=== PATIENT | female | born 1995 | race Caucasian/White ===

== ENCOUNTER 2017-04-30 18:05 | Inpatient (IN) | payer SELFPAY ==
[~2017-04-30] VITALS: Ht 162.6 cm; Wt 68.0 kg
[2017-04-30 18:40] VITALS: BP 114/61
[2017-04-30] MEDS ORDERED: PRENATAL 19 TA1 EACH PO (19:20)
[2017-04-30] MEDS ORDERED: FERROUS SULFAT325 MG PO (19:20)
[2017-04-30] MEDS ORDERED: TERBUTALINE 1 MG/ML VIAL SUBQ SCH (20:10)
[2017-04-30] MEDS ORDERED: TERBUTALINE 1 MG/ML VIAL SUBQ ONE (20:22)
[2017-04-30] MEDS: LACTATED RINGERS 1,000 ML IV SCH (20:52)
[2017-05-01] MEDS: LACTATED RINGERS 1,000 ML IV SCH ×2 (01:24→18:08)
[2017-05-01] MEDS ORDERED: NALBUPHINE 10 MG/ML AMP IVP PRN ×2 (08:35→13:50)
[2017-05-01] MEDS ORDERED: NALBUPHINE HYDROCHLORIDE 10 MG/ML VIAL ONE ×2 (08:40→22:42)
--- NOTE | 2017-05-01 08:58 | NUR ---
PATIENT HAS BEEN SCREENED AND CATEGORIZED LOW NUTRITION RISK. PATIENT WILL BE SEEN WITHIN 7 DAYS OF ADMISSION. 05/07/[address]
[2017-05-01] MEDS ORDERED: OXYTOCIN 20 UNITS/LR PREMIX 1,000 ML IV SCH (13:48)
[2017-05-01] MEDS ORDERED: PROMETHAZINE 25 MG/ML VIAL IVP PRN (13:50)
[2017-05-01] MEDS ORDERED: OXYTOCIN 10 UNITS/ML VIAL IM ONE (13:50)
[2017-05-01] MEDS ORDERED: AMPICILLIN 2,000 MG in NACL 0.9% 100 ML IV SCH (14:17)
[2017-05-01] MEDS ORDERED: AMPICILLIN 2,000 MG VIAL ONE (14:42)
[2017-05-01] MEDS ORDERED: ROPIVACAINE 0.2%/NS PREMIX 250 ML EPI ONE (15:57)
[2017-05-01] MEDS ORDERED: AMPICILLIN 1,000 MG VIAL ONE ×2 (18:27→22:53)
[2017-05-01] MEDS: AMPICILLIN 1,000 MG in NACL 0.9% 50 ML IV SCH ×2 (18:40→22:50)
[2017-05-01] MEDS ORDERED: PROMETHAZINE 25 MG/ML VIAL ONE (22:43)
[2017-05-02] MEDS ORDERED: ROPIVACAINE 0.2%/NS PREMIX 250 ML EPI ONE (01:21)
[2017-05-02] MEDS: AMPICILLIN 1,000 MG in NACL 0.9% 50 ML IV SCH ×2 (02:53→06:52)
[2017-05-02] MEDS ORDERED: AMPICILLIN 1,000 MG VIAL ONE ×2 (02:56→06:25)
[2017-05-02] MEDS: LACTATED RINGERS 1,000 ML IV SCH (05:56)
[2017-05-02] MEDS ORDERED: OXYTOCIN 20 UNITS/LR PREMIX 1,000 ML IV ONE (06:25)
[2017-05-02] MEDS ORDERED: OXYTOCIN 10 UNITS/ML VIAL ONE (08:54)
[2017-05-02] MEDS ORDERED: METHYLERGONOVINE 0.2 MG/ML AMP IM PRN (12:45)
[2017-05-02] MEDS ORDERED: oxyCODONE/APAP 5/325 MG 1 TAB TAB PO PRN (12:45)
[2017-05-02] MEDS ORDERED: MEASLES, MUMPS, AND RUBELLA 1 VIAL SQVAC PRN (12:45)
[2017-05-02] MEDS ORDERED: WITCH HAZEL 40 PAD PACKAGE TP PRN (12:45)
[2017-05-02] MEDS ORDERED: BENZOCAINE/MENTHOL 20%-0.5% 60 GM CAN TP PRN (12:45)
[2017-05-02] MEDS ORDERED: TEMAZEPAM 15 MG CAP PO PRN (12:45)
[2017-05-02] MEDS ORDERED: IBUPROFEN 800 MG TAB PO PRN (12:45)
[2017-05-02] MEDS: HYDROcodone/APAP 5/325 MG 1 TAB TAB PO PRN ×2 (12:53→21:39)
[2017-05-02] MEDS ORDERED: DOCUSATE SOD/SENNA 50/8.6 MG 1 TAB PO SCH (21:00)
[2017-05-03] MEDS: HYDROcodone/APAP 5/325 MG 1 TAB TAB PO PRN ×2 (10:30→19:45)
[2017-05-03] MEDS ORDERED: MOTRIN400 MG PO (18:16)
== END 2017-05-03 20:30 | disposition home or self-care (01) | DRG 775 ==
LOC: OBSVTOIN 18:05 → MLD 18:05 → MFCC 05-02 12:45
PROVIDERS: ADMIT Obstetrics & Gynecology; ATTEND Obstetrics & Gynecology
PROC: 00HU33Z Insertion of Infusion Device into Spinal Canal, Percutaneous Approach (ICD-10-PCS; 2017-05-01)
PROC: 3E0R3CZ (ICD-10-PCS; 2017-05-01)
PROC: 10E0XZZ Delivery of Products of Conception, External Approach (ICD-10-PCS; principal; 2017-05-02)
PROC: 10907ZC Drainage of Amniotic Fluid, Therapeutic from Products of Conception, Via Natural or Artificial Opening (ICD-10-PCS; 2017-05-02)
DX: O99.824 Streptococcus B carrier state complicating childbirth (principal); O99.02 Anemia complicating childbirth; D64.9 Anemia, unspecified; Z3A.37 37 weeks gestation of pregnancy; Z37.0 Single live birth; Z87.891 Personal history of nicotine dependence; Z83.3 Family history of diabetes mellitus; Z82.49 Family history of ischemic heart disease and other diseases of the circulatory system